=== PATIENT | male | born 1970 | race Caucasian/White ===

== ENCOUNTER 2020-03-01 08:27 | Emergency (ER) | payer SELFPAY ==
[~2020-03-01] VITALS: Ht 170.2 cm; Wt 67.1 kg
--- NOTE | 2020-03-01 09:05 | NUR ---
pt to room 09 from [facility], dressed in gown and provided with warm blanket.
--- NOTE | 2020-03-01 10:00 | NUR ---
PT INSTRUCTED TO PROVIDE STOOL SAMPLE , SUPPLIES PROVIDED FOR COLLECTION. PT UP TO BATHROOM TO ATTEMPT AT THIS TIME
[2020-03-01 10:17] LABS: BASOPHILS % (AUTO) 1 % (0-1); EOSINOPHILS % (AUTO) 1 % (1-7); LYMPHOCYTES % (AUTO) 19 % (22-44); MEAN CORPUSCULAR HEMOGLOBIN 34.8 pg (27.5-34.5); MEAN CORPUSCULAR HGB CONC 33.7 g/dL (33.2-36.2); MEAN PLATELET VOLUME 8.4 fL (7.4-10.4); MONOCYTES % (AUTO) 13 % (2-9); NEUTROPHILS % (AUTO) 65 % (42-75); PLATELET COUNT 210 x10^3/uL (130-400); RED CELL DISTRIBUTION WIDTH 14.1 % (9.4-14.8)
[2020-03-01 10:23] LABS: MD NO
[2020-03-01 10:26] LABS: ALBUMIN 4.1 g/dL (3.4-5.0); ANION GAP 9 mmol/L (5-15); CHLORIDE 104 mmol/L (98-107)
[2020-03-01 10:30] LABS: ALANINE AMINOTRANSFERASE 10 U/L (12-78); ALKALINE PHOSPHATASE 48 U/L (45-117); BILIRUBIN,TOTAL 0.4 mg/dL (0.2-1.0); CREATININE 0.63 mg/dL (0.7-1.3); TOTAL PROTEIN 7.9 g/dL (6.4-8.2)
--- NOTE | 2020-03-01 10:32 | NUR ---
pt provided stool sample, sample walked to lab. no blood visualized in stool. pt a&o, resps even and unlabored, no complaint at this time. call light in reach.
[2020-03-01 11:07] LABS: CLOSTRIDIUM DIFFICILE ANTIGEN NEGATIVE; CLOSTRIDIUM DIFFICILE TOXIN NEGATIVE (Negative)
--- NOTE | 2020-03-01 11:15 | NUR ---
stool results reviewed by LYDIA Zhao ,awaiting further orders at this time .
--- NOTE | 2020-03-01 11:52 | NUR ---
awaiting stool study results, diet tray ordered with MD tomas . pt resting on gurkylie, a&o, resps even and unlabored. karl.
[2020-03-01 12:18] VITALS: BP 154/100
--- NOTE | 2020-03-01 12:25 | NUR ---
pt given dc instructions and script, educated regarding rx for anusol and immodium. pt given meal tray, tolerating well with no n/v. pt a&o, reps even and unlabored. pt ambulatory to dc desk with steady gait. all questions answered.
== END 2020-03-01 12:42 | disposition home or self-care (01) ==
LOC: ED 09:36
DX: K64.8 Other hemorrhoids (principal); Z86.718 Personal history of other venous thrombosis and embolism
CPT/HCPCS: 36415; 80053; 85025; 87046; 87324; 87427; 89055; 99283

== ENCOUNTER 2020-03-15 16:23 | Emergency (ER) | payer MEDICAID ==
[~2020-03-15] VITALS: Ht 170.2 cm; Wt 64.4 kg
--- NOTE | 2020-03-15 16:46 | NUR ---
PT BIB EMS, PT +ETOH, WITH THOUGHTS OF SI. PT VERBALIZES PKLAN TO USE HIS GUITAR STRAP TO HANG HIMSELF. PT STATES PRIOR ATTEMPTS BY OD AND STATES "PRETTY MUCH HAVE THOUGHTS OF KILLING MYSELF ALL THE TIME" PT IS COOPERATIVE, BREATHALYZER = 0.358. DR DUMONT AT BEDSIDE, POC DISCUSSED AND ORDERS REC'D. PT COOPERATIVE, AND REMOVED ALL CLOTHES AND PUT GOWN ON. AMBULATED TO BATHROOM, UPRIGHT STEADY GAIT AND PROVIDED URINE SAMPLE. RTD TO ROOM W/O INCIDENT. PT MAKES VERBAL AGREEMENT WITH THIS RN THAT HE WILL NOT TRY TO HARM HIMSELF WHILE HE IS HERE IN THE HOSPITAL. CALL LIGHTW/I REACH, MEAL TRAY ORDERED. BELONGINGS BAGS X 3 PLACED IN LOCKER.
[2020-03-15 16:59] LABS: BASOPHILS % (AUTO) 1 % (0-1); EOSINOPHILS % (AUTO) 3 % (1-7); LYMPHOCYTES % (AUTO) 57 % (22-44); MEAN CORPUSCULAR HEMOGLOBIN 34.5 pg (27.5-34.5); MONOCYTES % (AUTO) 6 % (2-9); NEUTROPHILS % (AUTO) 34 % (42-75); PLATELET COUNT 319 x10^3/uL (130-400); RED BLOOD COUNT 4.18 x10^6/uL (4.38-5.82); RED CELL DISTRIBUTION WIDTH 13.9 % (9.4-14.8)
[2020-03-15 17:03] LABS: ALBUMIN 4.4 g/dL (3.4-5.0); ANION GAP 5 mmol/L (5-15); CALCIUM 9.2 mg/dL (8.5-10.1); CHLORIDE 110 mmol/L (98-107); CREATININE 0.76 mg/dL (0.7-1.3); SALICYLATE LEVEL 3.2 mg/dL (2.8-20.0)
[2020-03-15 17:10] LABS: MD NO
[2020-03-15 17:13] LABS: AMPHETAMINE SCREEN, URINE Positive (Negative); BARBITURATE SCREEN, URINE Negative (Negative); BENZODIAZEPINE SCREEN, URINE Negative (Negative); CANNABINOID SCREEN, URINE Negative (Negative); COCAINE SCREEN, URINE Negative (Negative); METHADONE SCREEN, URINE Negative (Negative); OPIATE SCREEN, URINE Negative (Negative)
--- NOTE | 2020-03-15 17:27 | NUR ---
SI MEAL TRAY PROVIDED
--- NOTE | 2020-03-15 19:26 | NUR ---
RECEIVED BS REPORT FROM YASMINE ORTIZ TO ASSUME CARE OF PT. AT ABOUT 1910. PT. VERBALIZED THAT HE WILL CALL RN FOR ANY THOUGTS OF HARMING SELF. PT. HAS TV ON AND DENEIS NEEDS AT THIS TIME. ATE ALL OF MEAL TRAY THAT WAS PROVIDED.
--- NOTE | 2020-03-15 21:12 | NUR ---
PT CARE ASSUMED. PT RESTING COMFORTABLY IN BED, WATCHING TV. DENIES ANY NEEDS OR CONCERNS AT THIS TIME. WILL CONTINUE TO MONITOR.
--- NOTE | 2020-03-15 23:06 | NUR ---
PT RESTING IN BED, VITALS STABLE. NAD NOTED. CALL LIGHT IN REACH.
--- NOTE | 2020-03-15 23:36 | NUR ---
PT SLEEPING IN BED, EASILY ROUSES TO VERBAL STIMULATION. BREATHALYZER PERFORMED, 0.139. PT DENIES ANY NEEDS. CALL LIGHT IN REACH.
--- NOTE | 2020-03-16 00:31 | NUR ---
PT UP TO RESTROOM, DENIES ANY FURTHER NEEDS OR CONCERNS AT THIS TIME.
[2020-03-16 02:04] VITALS: BP 90/42
--- NOTE | 2020-03-16 02:04 | NUR ---
PT RESTING IN BED, DENIES ANY NEEDS. BREATHALYZER PERFORMED. ERP NOTIFIED OF PT READINESS FOR REEVAL.
== END 2020-03-16 02:34 | disposition home or self-care (01) ==
LOC: ED 19:35
DX: R45.851 Suicidal ideations (principal); F10.220 Alcohol dependence with intoxication, uncomplicated; Y90.9 Presence of alcohol in blood, level not specified
CPT/HCPCS: 36415; 80048; 80307; 82040; 85025; 99285

== ENCOUNTER 2020-03-27 16:35 | Emergency (ER) | payer MEDICAID ==
[~2020-03-27] VITALS: Ht 170.2 cm; Wt 65.7 kg
[2020-03-27 17:31] LABS: ANION GAP 7 mmol/L (5-15); CALCIUM 8.9 mg/dL (8.5-10.1); CHLORIDE 100 mmol/L (98-107); CREATININE 0.87 mg/dL (0.7-1.3)
[2020-03-27 17:43] LABS: MEAN CORPUSCULAR HEMOGLOBIN 33.9 pg (27.5-34.5); MEAN CORPUSCULAR HGB CONC 33.8 g/dL (33.2-36.2); MEAN PLATELET VOLUME 8.4 fL (7.4-10.4); PLATELET COUNT 287 x10^3/uL (130-400); RED BLOOD COUNT 3.76 x10^6/uL (4.38-5.82)
--- NOTE | 2020-03-27 18:15 | NUR ---
POSTAL SORTING OFFICER: PT AMBULATORY TO ROOM FROM LOBBY
--- NOTE | 2020-03-27 18:26 | NUR ---
CHAGNED TO GOWN, BLANKETS, C/O DIFF SWALLOWING R/T LYMPH NODE R SIDE AND BILAT LEG PAIN. NO TRAUMA.
[2020-03-27] MEDS ORDERED: DEXAMETHASONE 4 MG TABLET ONE (18:45)
[2020-03-27 18:58] LABS: MD YES
[2020-03-27] MEDS ORDERED: DEXAMETHASONE 4 MG TABLET PO ONE (19:00)
[2020-03-27] MEDS ORDERED: BICILLIN-LA 1,200,000 UNITS/2 ML IM ONE (19:00)
[2020-03-27 19:01] LABS: BASOS#(MANUAL) 0.36 x10^3/uL (0-0.1); BASOS% (MANUAL) 2 % (0-1); LYMPH#(MANUAL) 6.37 x10^3/uL (1-3.4); LYMPHS% (MANUAL) 35 % (22-44); MONOS#(MANUAL) 1.09 x10^3/uL (0.3-2.7); MONOS% (MANUAL) 6 % (2-9); SEG#(MANUAL) 10.37 x10^3/uL (1.8-6.8); SEGS% (MANUAL) 57 % (42-75)
[2020-03-27 19:03] LABS: <PLATELET ESTIMATE> ADEQUATE; <PLT MORPHOLOGY> NORMAL PLT MORPH
--- NOTE | 2020-03-27 19:26 | NUR ---
BREAK RN: CALLED PHARMACY FOR PENICILLIN RX. AWAITING MED FOR ADMIN
[2020-03-27 19:37] VITALS: BP 100/58
--- NOTE | 2020-03-27 19:38 | NUR ---
TASK RN: PT MEDICATED PER EMAR
== END 2020-03-27 19:50 | disposition home or self-care (01) ==
LOC: ED 18:30
DX: J02.0 Streptococcal pharyngitis (principal); M79.89 Other specified soft tissue disorders
CPT/HCPCS: 36415; 80048; 85025; 87081; 87880; 96372; 99283; J0561